=== PATIENT | female | born 1950 | race Caucasian/White ===

== ENCOUNTER 2017-01-15 20:14 | Emergency (ER) | payer OTHER ==
[~2017-01-15] VITALS: Ht 165.1 cm; Wt 85.3 kg
[2017-01-15 20:30] VITALS: BP 144/68
--- NOTE | 2017-01-15 20:46 | NUR ---
Patient taken to xray via wheechair at this time.
--- NOTE | 2017-01-15 21:00 | NUR ---
66Y F BIB DAUGHTER C/O OF ABRASIONS TO RT KNEE AFTER SHE TRIPPED AND FELL AT HOME TODAY. NO ACTIVE BLEEDING NOTED, PAIN IS 7/10 IN SCALE.
[2017-01-15] MEDS ORDERED: KETOROLAC 60 MG/2 ML VIAL IM ONE (21:10)
[2017-01-15] MEDS ORDERED: DRY DRESSING TP PRN (21:10)
[2017-01-15] MEDS ORDERED: NON ADHERENT DRESSING TP PRN (21:10)
[2017-01-15] MEDS ORDERED: BACITRACIN OINT 500 UNITS/GM PKT TP ONE ×2 (21:10→21:13)
[2017-01-15] MEDS ORDERED: NACL 0.9% IRR 250 ML BOTTLE IR SCH (21:10)
[2017-01-15 22:05] VITALS: BP 144/68
--- NOTE | 2017-01-15 22:05 | NUR ---
Patient discharged with v/s stable. Written and verbal after care instructions given and explained. Patient alert, oriented and verbalized understanding of instructions. Ambulatory with steady gait. All questions addressed prior to discharge. ID band removed. Patient advised to follow up with PMD. Rx of CEPHALEXIN, SILVADENE CREAM, NORCO given. Patient educated on indication of medication including possible reaction and side effects. Opportunity to ask questions provided and answered.
== END 2017-01-15 22:05 | disposition home or self-care (01) ==
LOC: MED 20:14
CPT/HCPCS: 73562; 82948; 90715; 99284; J1885